=== PATIENT | male | born 2000 | race African-American/Black ===

== ENCOUNTER 2021-07-07 15:48 | Emergency (ER) | payer OTHER, SELFPAY ==
[2021-07-07 16:04] VITALS: BP 97/70; PULSE 90; RESP 18; TEMP 37.1; O2SAT 97; BMI 21.2
--- NOTE | 2021-07-07 18:32 | ED.EXTPRO ---
HPI - Extremity Problem General Chief complaint: Extremity Problem Stated complaint: pain in knees Source: patient Mode of arrival: ambulatory Limitations: no limitations History of Present Illness HPI Narrative: Patient presents to ED for bilateral knee pain for years. Patient denies any recent trauma, swelling, redness, tingling/numbness/fever or chills. Patient states had the pain at work today so came to the ED to be evaluated. Patient states standing all day. Patient does not want wait for x-ray would like to be discharged. Patient denies any leg swelling or calf pain. She denies any open wounds, pus discharge, bluish/black discloration, or foul odor. Related Data Allergies Allergy/AdvReac Type Severity Reaction Status Date / Time No Known Allergies Allergy Verified 07/07/21 16:04 Review of Systems Review of Systems: Bilateral knee pain Yes all other systems are reviewed and are negative [facility] Social History Social History Advance Directives: No Advance Directives Information Provided: No Physical Exam Vital Signs: Vital Signs: Last Vital Signs Temp 98.7 F 07/07/21 16:04 Pulse 90 07/07/21 16:04 Resp 18 07/07/21 16:04 BP 97/70 07/07/21 16:04 Pulse Ox 97 07/07/21 16:04 BMI result Body Mass Index 21.2 Const: General: cooperative, healthy appearing, comfortable, no acute distress, well developed, alert, awake and Physically active Orientation/consciousness: oriented to person, oriented to place, oriented to time and patient oriented x3 HEENT: Head: Yes normal to inspection, Yes No palpable skull fracture present, Yes normocephalic, Yes atraumatic and No abrasion Eyes: General: appearance normal, both eyes and all related structures Neck: Neck: Yes normal visual inspection, Yes full ROM, Yes no lymphadenopathy, Yes no meningeal signs, Yes trachea midline, Yes supple, No anterior neck swelling and No tender Chest: Chest palpation & inspection: normal inspection of the chest and normal palpation of entire chest wall Breast/axilla inspection: normal inspection of the breasts Resp: Effort & Inspection: normal respiratory effort and able to speak in complete sentences Auscultation: clear to auscultation bilaterally Cardio: Jugular venous distension: no JVD Heart sounds: S1 normal heart sound present and S2 normal heart sound present GI: Inspection: Yes normal to inspection and No abdominal wall ecchymosis Palpation (GI): Soft to palpation, not firm, nontender, no guarding and not rigid : General: No CVA tenderness and Yes no CVA tenderness Back/Spine/Pelvis: Back: no CVA tenderness, No CVA tenderness and No back tenderness Skin: General skin exam: no rashes or lesions noted and elasticity normal Neuro: General: oriented to person, oriented to place, oriented to time, patient oriented x3, gait normal, tone normal, no meningeal signs, no focal motor deficits, CN's II-XI intact bilaterally and normal sensation to monofilament Extrem: Other: Bilateral knees/lower extremity: Negative for swelling, erythema, warmth, stiffness, ecchymosis, deformity, or crepitus. Lower extremities leg/ankle/foot are normal. Negative for calf pain. Motor/nose/vascular exam of lower extremity intact. Psych: Appearance: grossly normal, well kempt and not disheveled Course Course Course Narrative: Patient well-appearing Reevaluation(s) Reevaluation #1: No indication for x-ray. Not suspecting any fracture, septic joint, DVT, CHF, arterial occlusion, or fractures. Time: 18:42 MDM - Extremity (Nontraumatic) MDM Narrative Medical decision making narrative: Knee pain Discharge Plan Discharge Clinical Impression: Bilateral knee pain Patient Disposition: Home, Self-Care Instructions: Knee Pain (ED) Additional Instructions: Please follow-up with your primary care provider. Return to the ED immediately for any swelling, redness, stiffness, calf pain, leg swelling, fever, chills, bluish black discoloration, hotness, coldness, numbness/tingling, or any other concerning symptoms. [id number] Motrin/Tylenol can be used for pain relief. Stand Alone Forms: Work/School Release Discharge Date/Time: 07/07/21 18:53 Print Language: Spanish
== END 2021-07-07 18:53 | disposition home or self-care (01) ==
PROVIDERS: Emergency Provider Internal Medicine
DX: M25.562 Pain in left knee (principal); M25.561 Pain in right knee
CPT/HCPCS: 99282

== ENCOUNTER 2021-07-24 14:23 | Emergency (ER) | payer OTHER, SELFPAY ==
[2021-07-24 14:25] VITALS: BP 132/89; PULSE 100; RESP 18; TEMP 36; O2SAT 99; BMI 21.2
--- NOTE | 2021-07-24 17:35 | ED_ITS ---
HPI - General Adult General Chief complaint: Wound/Laceration Stated complaint: Forearm lac/work inj Time Seen by Provider: 07/24/21 17:35 Source: patient Mode of arrival: ambulatory Limitations: no limitations History of Present Illness HPI narrative: Patient is a 21 year old male presenting to the emergency department today with a right forearm laceration that occurred 5 days ago. Patient states that 5 days ago, he was cutting boxes at work and accidentally cut his right forearm twice. Patient states that he has been taking care of it on his own and his boss saw it today and made him come to the hospital. Patient states that he is up to date on all vaccinations, including his tetanus. Patient denies any dizziness, lightheadedness, abdominal pain, nausea, vomiting, fever, chills, blurry vision, double vision, loss of vision, chest pain, difficulty breathing, shortness of breath, back pain, night sweats, pain with urination, increased urinary frequency, increased urinary urgency, blood in his urine or stool, syncope or a near syncopal episode, bowel incontinence, bladder incontinence, bowel retention, bladder retention, or any other complaints at this time. Onset (ago): day(s) (5) Location: right and upper extremity Radiation: non-radiation Severity: mild Severity scale (1-10): 3 Quality: dull Pain Consistency: constant Relieving factors: none Exacerbating factors: none Associated symptoms: denies other symptoms Treatments prior to arrival: none Related Data Previous Rx's Medication Instructions Recorded cephalexin 500 mg capsule 500 mg PO Q6H 7 days #28 caps 07/24/21 Allergies Allergy/AdvReac Type Severity Reaction Status Date / Time No Known Allergies Allergy Verified 07/24/21 17:32 Review of Systems Constitutional: Constitutional: Reports no additional constitutional complaints, Denies chills, Denies fever(s) and Denies night sweats Eyes: Eyes: Reports no additional eye complaints, Denies blurry vision, Denies change in vision, Denies diplopia, Denies eye discharge, Denies loss of vision and Denies eye pain ENT: Denies dizziness Cardiovascular: Cardiovascular: Reports no additional cardiovascular complaints, Denies chest pain, Denies lightheadedness, Denies Loss of Consciousness and Denies dyspnea Respiratory: Respiratory: Reports no additional respiratory complaints and Denies dyspnea Gastrointestinal: Gastrointestinal: Reports no additional gastrointestinal complaints, Denies abdominal pain, Denies melena, Denies hematochezia, Denies change in bowel habits and Denies change in stool character Genitourinary: Genitourinary: Reports no additional male genitourinary complaints, Denies hematuria, Denies oliguria, Denies difficulty urinating, Denies dysuria, Denies urinary frequency, Denies urinary hesitancy, Denies urinary incontinence and Denies urinary urgency Musculoskeletal: Musculoskeletal: Reports no additional musculoskeletal complaints, Denies numbness and Denies tingling Integumentary/Breasts: Comments: lacerations to the right forearm Neurologic: Denies dizziness, Denies loss of vision, Denies numbness and Den ies tingling Psychiatric: Psychiatric: Reports no additional psychiatric complaints Endocrine: Endocrine: Reports no additional endocrine complaints Hematologic/Lymphatic: Hematologic/Lymphatic: Reports no additional hematologic/lymphatic complaints Allergic/Immunologic: Allergic/Immunologic: Reports no additional allergic/immunologic complaints PMFSH Past Medical History Attestation statement: The following information was validated with the patient. Source: old records reviewed Social History Social History Advance Directives: No Advance Directives Information Provided: No Physical Exam ED Vital Signs: Vital Signs - 24 hr 07/24/21 14:25 Temperature 96.8 F Pulse Rate 100 Respiratory Rate 18 Blood Pressure 132/89 Pulse Oximetry 99 Oxygen Delivery Method Room Air BMI result Body Mass Index 21.2 Const General: cooperative, no acute distress, alert and awake Nutritional Appearance: well nourished Orientation/consciousness: patient oriented x3 Limitations: no limitations [facility] Head: Yes normal to inspection and Yes atraumatic Ears: hearing grossly normal bilaterally and external ears normal General nose exam: Normal external nose present, no nasal discharge noted and no epistaxis Face and sinus: Yes normal facial exam, No abrasion and No laceration Mouth: Normal oral and palatal mucosa present, no drooling and no muffled voice Eyes General: appearance normal, both eyes and all related structures Periorbital: periorbital findings normal Eyelids: Yes eyelids normal Conjunctivae: conjunctivae normal Pupils: Equal, round and reactive pupils present EOM: EOMs intact bilaterally Neck Neck: Yes normal visual inspection, Yes full ROM and Yes no lymphadenopathy Chest Chest palpation & inspection: normal inspection of the chest Resp Effort & Inspection: normal respiratory effort and able to speak in complete sentences Auscultation: clear to auscultation bilaterally Cardio Rate: regular rate Rhythm: regular rhythm GI Inspection: Yes normal to inspection Skin Other: 2 lacerations present to the right forearm, the more proximal laceration is 3cm long with no gaping areas, the more distal laceration is superficial and 6cm long with some mild gaping Neuro General: patient oriented x3 and moves all extremities Cranial nerves: Yes Equal, round and reactive pupils present Cognition (Neuro): normal cognition Motor exam (neuro): 5/5 motor strength present throughout Sensory Exam: Normal double simultaneous stimulation for sensation Coordination: [id number] test normal Extrem General: Yes full ROM and Yes capillary refill normal Psych Appearance: grossly normal Mental Status: mental status grossly normal Affect: normal affect Attitude: cooperative Thought process: Normal thought process present Thought content: Normal thought content present Insight: Good insight present (Psych) Medical Decision Making MDM Narrative Medical decision making narrative: Patient is a 21 year old male presenting to the emergency department today with lacerations to the right forearm. Patient's physical exam was as described previously in this chart. Patient's more distal laceration is gaping however, the patient has had this wound for greater than 48 hours and thus, it cannot be closed. I explained my physical exam findings to the patient. I answered all questions asked by the patient. I stressed the importance of the patient taking his medication as prescribed. I stressed the importance of the patient following up with his primary care provider. I stressed the importance of the patient r eturning to the emergency department immediately if his symptoms were to worsen or if he were to develop any dizziness, shortness of breath, difficulty breathing, chest pain, blurry vision, loss of vision, nausea, vomiting, abdominal pain, fever, chills, back pain, or any other complaints. Patient verbalized agreement and understanding with this treatment plan and discharge. Differential Diagnosis Differential Diagnosis: laceration, abrasion, avulsion Medical Records Medical records reviewed: Yes I reviewed the patient's medical records. Discharge Plan Discharge Clinical Impression: Laceration Patient Disposition: Home, Self-Care Instructions: Laceration (ED) Additional Instructions: Follow up with your primary care provider. Return to the emergency department immediately if your symptoms worsen or if you develop any dizziness, shortness of breath, difficulty breathing, chest pain, blurry vision, loss of vision, nausea, vomiting, abdominal pain, fever, chills, back pain, or any other complaints. Prescriptions: New cephalexin 500 mg capsule 500 mg PO Q6H 7 Days Qty: 28 0RF Referrals: [facility] [place] [facility] [Provider Group] (Call to establish with a primary care provider if you do not have one. If you have one, please follow up with their office. ) [facility], [place] [Provider Group] (Call to establish with a primary care provider if you do not have one. If you have one, please follow up with their office. ) [facility] [place] [Provider Group] (Call to establish with a primary care provider if you do not have one. If you have one, please follow up with their office. ) Stand Alone Forms: Work/School Release Interventions: ED Discharge Assessment Last Done: 07/24/21 18:06 Discharge Date/Time: 07/24/21 18:08 Print Language: Chilean
== END 2021-07-24 18:08 | disposition home or self-care (01) ==
PROVIDERS: Emergency Provider Emergency Medicine
DX: S51.811A Laceration without foreign body of right forearm, initial encounter (principal); W26.0XXA Contact with knife, initial encounter; Y93.89 Activity, other specified; Y92.59 Other trade areas as the place of occurrence of the external cause; Y99.0 Civilian activity done for income or pay
CPT/HCPCS: 99283

== ENCOUNTER 2021-12-19 14:55 | Emergency (ER) | payer OTHER, SELFPAY ==
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
[2021-12-19 15:13] VITALS: BP 134/83; PULSE 92; RESP 18; TEMP 37; O2SAT 99; BMI 19.9
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
== END 2021-12-19 18:36 | disposition home or self-care (01) ==
PROVIDERS: Emergency Provider Emergency Medicine
DX: M79.5 Residual foreign body in soft tissue (principal); M79.641 Pain in right hand
CPT/HCPCS: 73120; 99282; 99283

== ENCOUNTER → 2022-01-01 10:34 | Outpatient (BNVA) | payer OTHER, SELFPAY | PROVIDERS: Visit Provider Physician Assistant | DX: S60.551D Superficial foreign body of right hand, subsequent encounter (principal) | CPT/HCPCS: 99202 ==

== ENCOUNTER 2022-01-06 12:26 | Day surgery (SDC) | payer OTHER, SELFPAY ==
--- NOTE | 2022-01-03 08:27 | HO.ANESPROP2 ---
Documented by User: Corina Allison NP 01/03/22 14:09 HPI - Anesthesia Eval Consult details Narrative: 21yo M for Foreign Body Removal from hand Hx of WPW per record. Unable to reach patient by phone PMFSH Active Problems Active Problems: All Active Problems (Updated 01/01/22 @ 11:14 by Jh Briseno) Foreign body of right hand (Acute) Past Medical History Medical History WPW (Mjpdl-Ywsazlgvs-Jvsrm syndrome) Surgical History Surgical History History of heart surgery Social History Social History Patient Tobacco Use Status: Former Tobacco user Quit Date: 2020 Tobacco use type: Cigarette Years Smoked: 4 Smoked in Last 30 Days: No Use of substances other than those prescribed or required for medical reasons: Yes Substance Use Frequency: Daily Are you DNR?: No Advance Directives: No Advance Directives Information Provided: Yes Current occupational status: unemployed Current occupation: lt hand Meds Allergies Allergy/AdvReac Type Severity Reaction Status Date / Time No Known Allergies Allergy Verified 01/06/22 12:42 Home Medications Medication Instructions Recorded Confirmed Last Taken Type No Known Home Meds 01/06/22 01/06/22 Unknown History Exam Exam Date and Time: January 03, [id number] Assessment and Plan Assessment Anesthesia Assessment: Chart Reviewed Documented by User: Ysabel Ortiz MD 01/06/22 14:36 PMFSH Past Medical History Medical History WPW (Suprx-Meirfjgem-Upkau syndrome) Functional capacity: independent ambulation Family History Family history of problems with anesthesia: No Surgical History Surgical History History of heart surgery History of Problems with Anesthesia: No Social History Social History Patient Tobacco Use Status: Former Tobacco user Quit Date: 2020 Tobacco use type: Cigarette Years Smoked: 4 Smoked in Last 30 Days: No Use of substances other than those prescribed or required for medical reasons: Yes Substance Use Frequency: Daily Are you DNR?: No Advance Directives: No Advance Directives Information Provided: Yes Current occupational status: unemployed Current occupation: lt hand Meds Allergies Allergy/AdvReac Type Severity Reaction Status Date / Time No Known Allergies Allergy Verified 01/06/22 12:42 Home Medications Medication Instructions Recorded Confirmed Last Taken Type No Known Home Meds 01/06/22 01/06/22 Unknown History Exam Airway Mallampati Class: II TM Dist: >3cm Neck ROM: Full Heart: RRR Lungs: CTA Assessment and Plan Final Anesthetic Review Family History of Problems with Anesthesia: No History of Problems with Anesthesia: No ASA Class: II Final Preanesthetic Review: No Changes in Pt Med Stat, Meds/Allgs Chart Reviewed, Consent Obtained/Reviewed and Anes Risks/Benef Reviewed Patient Risk: Low Procedure Risk: Low Anesthetic Plan Anesthetic Plan: GA Disposition: Standard PACU
[2022-01-06] VITALS (7 sets, daily range): BP systolic 131–145; BP diastolic 66–87; PULSE 72–86; RESP 16–20; TEMP 36.6–36.7; O2SAT 96–100; BMI 21.7
--- NOTE | 2022-01-06 | ECG_ITS ---
Test Reason : preop Blood Pressure : / mmHG Vent. Rate : 085 BPM Atrial Rate : 085 BPM P-R Int : 116 ms QRS Dur : 138 ms QT Int : 376 ms P-R-T Axes : 074 063 082 degrees QTc Int : 447 ms Sinus rhythm with marked sinus arrhythmia Ventricular pre-excitation, WPW pattern type B Nonspecific ST abnormality Abnormal ECG No previous ECGs available Referred By: Corina Allison Electronically Signed By:TAMARA BARBOSA MD
--- NOTE | ~2022-01-06 | FL_ITS ---
EXAMINATION: XR FLUOROSCOPY WITH IMAGES CLINICAL INFORMATION: BB foreign body right hand. COMPARISON: Right hand radiographs 12/19/2021 TECHNIQUE: Fluoroscopy Supervised By: Dr. Stacy Kirkland. Fluoroscopy Time: 0.7 sec. Cumulative Dose: 0.021 mGy. DAP: 0.0012 Gycm2. Images: 1. FINDINGS: The metallic round BB foreign body is again seen overlying the soft tissues between the second and third metacarpal head. There is a tape-like density possibly gauze or towel overlying the medial hand. FL/FL guidance in OR IMPRESSION: Fluoroscopy for orthopedic procedure.
[2022-01-06] MEDS: Lactated Ringers 1,000 ML 100 ML IVCONT (13:12)
[2022-01-06 14:01] LABS: Amphetamine Screen Urine Not Detected (Not Detect); Barbiturates, Urine Not Detected (Not Detect); Benzodiazepines Screen Urine Not Detected (Not Detect); Cannabinoid Screen Urine POSITIVE (Not Detect); Cocaine Screen Urine Not Detected (Not Detect); Fentanyl, urine Not Detected (Not Detect); Opiate Screen Urine Not Detected (Not Detect); Phencyclidine Screen Urine Not Detected (Not Detect)
--- NOTE | 2022-01-06 14:11 | MHC.SHP ---
Pre-Procedural Eval Section A Date of Service: 01/06/22 The patient is an INPATIENT: No The History & Physical has been completed within 30 days and I have reviewed it.: Yes Section B Chief Complaint: right hand foreign body, and skin mass Allergies: Allergies Allergy/AdvReac Type Severity Reaction Status Date / Time No Known Allergies Allergy Verified 01/06/22 12:42 Exam Exam Comment: right hand swelling and tenderness distal to the mid palmar crease in area of radiopaque foreign body/BB. The patient also was noted to have an approximately 2 mm pigmented skin lesion proximal to the palmar digital crease of the right middle finger. The patient denies having any injury in this area, does not recall how long it has been there but says more than a few months ago, and that it may be cancer. Sensation intact to the tips of all digits. Cap refill brisk can make a fist and extend all of his digits Plan I have reviewed the history and physical and performed a pertinent physical examination on my patient. No changes have occurred unless specified. The risks and benefits of operative treatment were discussed with the patient and the patient wishes to proceed with surgery. These risks include, but are not limited to risk of damage to blood vessels, nerves, tendons, infection, recurrence, incomplete relief of preoperative symptoms, persistent pain, possible need for further surgery and the risks associated with regional blocks and anesthesia. The plan is to take the patient to the operating room today for the following procedures: 1. right hand removal of foreign body 2. right hand excisional biopsy of skin mass All of the preoperative paperwork including the consent was filled out today. All the patient's questions were answered. The patient understands that they will be contacted by our filler shredder soon to schedule this procedure
--- NOTE | 2022-01-06 14:15 | W.PM.OPN ---
Operative Note Operative Note Date of Service: 01/06/22 Narrative: Operative Note Narrative: Preop diagnosis: 1. Right palmar hand foreign body /BB 2. Right hand palmar pigmented mass Postop diagnosis: Same Procedure: 1. Right hand removal of foreign body 2. I&D and culture of possibly purulent fluid about foreign body 3. Right hand excisional biopsy of palmar pigmented mass Surgeon: Stacy Kirkland MD Anesthesia: General Anesthesia Findings: metallic spherical foreign body, 2-3 mm diameter pigmented skin mass. Blood tinged creamy fluid found about foreign body ,possibly purulent. Implants: spherical metallic foreign body removed from right hand Tourniquet time: Thirteen minutes EBL: 5.0 ml Specimen: 2-3 mm diameter pigmented skin mass sent for histopathology. Possibly purulent fluid found at site of foreign body sent for cultures. Drains: None Complications: None Disposition: Brought to the recovery room in stable condition Plan: Follow-up in 10-14 days for wound check, suture removal and to check pathology Patient will be sent home on antibiotics. Follow-up in 1 week for wound check Indications: The patient is a 21 year old young man with a spherical metallic foreign body in the palm of his right hand, as well as a 2-3 mm hyper pigmented palmar skin lesion . The risks and benefits of operative treatment, including but not limited to risk of damage to blood vessels, nerves, tendons, infection, recurrence, persistent pain or numbness, incomplete resolution of preoperative symptoms, or need for further surgery were discussed with the patient and they wished to proceed with surgery. Procedure: Once consent was obtained patient was brought back to the operating suite and placed in the operating table in a supine position. . Perioperative antibiotics and anesthesia was administered by the anesthesia team. A tourniquet was applied to the proximal aspect of the right upper extremity and the limb was prepped and draped in a standard surgical fashion. The limb was elevated exsanguinated with Esmarch bandage and the tourniquet inflated to 250 mm of mercury for a total tourniquet time of [ ] minutes. A fluoroscopic image was taken to confirm location of our metallic foreign body. A 1.2 cm oblique incision was made directly over the palpable area of swelling over the foreign body in the patient's right palm. Through the skin the subcutaneous tissues. I then carefully dissected down to the level of the foreign body. Some blood tinged creamy fluid was found about the foreign body. Cultures were taken of this fluid. A 3 mm diameter spherical metallic foreign body consistent with a BB was removed from the palm of the patient's right hand between the 2nd and 3rd metacarpal heads and placed on the back table. The wound was then copiously irrigated with normal saline. Two sutures of 5 0 Prolene were then placed to loosely close the incision but allow for drainage if necessary. I then made a longitudinally oriented elliptical incision about the 2-3 mm diameter hyper pigmented skin lesion that was located proximal to the palmar digital crease of the middle finger. The incision was made through the skin to the subcutaneous tissues using a 15. Blade And measured 7 mm by 10 mm. This roughly elliptically shaped piece of skin was then carefully mobilized and excised from the underlying subcutaneous tissue placed on the back table to be sent for histopathology. No other masses or lesions were appreciated. the skin edges were then reapproximated with some 5 0 Prolene suture material. At this point the tourniquet was deflated and hemostasis obtained with a brief period of local pressure. The wounds were infiltrated with some 0.5% plain ropivacaine for postop pain control and a sterile dressing was applied. The patient appears to have tolerated the procedure well and with no complications. All digits were well vascularized conclusion of the case.
--- NOTE | 2022-01-06 15:15 | HO.POSTANES ---
Post Anesthesia Evaluation Post Anesthesia Evaluation Vital Signs: Vital Signs Temp Pulse Resp BP Pulse Ox O2 Del Method 01/06/22 12:47 98.1 F 85 16 131/66 100 Room Air Anesthesia: General LMA Mental Status: Awake Nausea/Vomiting: None Hydration: Adequate Anesthesia-Related Issues: No Anes. Related Issues
== END 2022-01-06 16:20 | disposition home or self-care (01) ==
PROVIDERS: Anesthesiology; Visit Provider Orthopaedic Surgery
PROC: (CPT 10120; principal; 2022-01-06 15:10)
DX: S60.551A Superficial foreign body of right hand, initial encounter (principal); R20.0 Anesthesia of skin; R20.2 Paresthesia of skin; W34.010A Accidental discharge of airgun, initial encounter; X58.XXXA Exposure to other specified factors, initial encounter; Y93.89 Activity, other specified; Y92.9 Unspecified place or not applicable; Y99.8 Other external cause status; I45.6 Pre-excitation syndrome; Z98.890 Other specified postprocedural states; Z87.891 Personal history of nicotine dependence
CPT/HCPCS: 10120; 11422; 80307; 87070; 87205; 88305; 93005; J0171; J0690; J1100; J1885; J2250; J2405; J2795; J3010